=== PATIENT | female | born 1985 | race African-American/Black ===

== ENCOUNTER 2016-09-05 17:51 | Emergency (ER) | payer SELFPAY ==
[~2016-09-05] VITALS: Ht 172.7 cm; Wt 99.8 kg
[~2016-09-05 17:51] MED LIST: ACETAMINOPHEN-1 EAC1 ORAL; ALBUTEROL SULF8.5 GM INH; ALBUTEROL2.5 MG/3 M HHN; AMOXICILLIN500 MG ORAL; BENADRYL50 MG ORAL; CIPRO500 MG PO; HYDROCORTISONE28 G2 TP; IBUPROFEN600 MG ORAL; METRONIDAZOLE500 MG ORAL; NKM; NORCO 5-325 TA1 EACH ORAL; NYSTATIN15 GM TOPIC; ONDANSETRON ODT4 MG ORAL; REGLAN10 MG PO; VIBRAMYCIN100 MG ORAL; ZOFRAN ODT4 MG ORAL; no home meds
[2016-09-05] MEDS ORDERED: NKM (18:01)
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
[2016-09-05] MEDS ORDERED: Ketorolac 30mg Inj IV ONE (19:15)
[2016-09-05 19:17] LABS: BASOPHILS % (AUTO) 1.4 % (0.0-2.0); EOSINOPHILS % (AUTO) 5.7 % (0.0-3.0); LYMPHOCYTES % (AUTO) 28.5 % (20.0-45.0); MEAN CORPUSCULAR HEMOGLOBIN 30.9 PG (27.0-31.0); MEAN CORPUSCULAR HGB CONC 32.7 G/DL (32.0-36.0); MEAN CORPUSCULAR VOLUME 95 FL (80-99); MEAN PLATELET VOLUME 7.5 FL (6.5-10.1); MONOCYTES % (AUTO) 12.2 % (1.0-10.0); NEUTROPHILS % (AUTO) 52.2 % (45.0-75.0); PLATELET COUNT 249 K/UL (150-450); RED BLOOD COUNT 4.14 M/UL (4.20-5.40); RED CELL DISTRIBUTION WIDTH 13.2 % (11.6-14.8)
[2016-09-05 19:19] VITALS: BP 114/63
[2016-09-05] MEDS ORDERED: IBUPROFEN600 MG ORAL (19:26)
[2016-09-05 19:39] LABS: CALCIUM 9.3 mg/dL (8.6-10.2); CREATININE 1.3 mg/dL (0.5-0.9); GLOMERULAR FILTRATION RATE 57.2 mL/min (>60); POTASSIUM 3.9 mEQ/L (3.4-4.9)
[2016-09-05 19:42] VITALS: BP 114/63
--- NOTE | 2016-09-06 11:44 | Diagnostic Imaging Report ---
Indication: Chest pain Technique: One view of the chest Comparison: none Findings: Heart is borderline enlarged. Lungs and pleural spaces clear. The bones are unremarkable. No significant change Impression: No acute process
--- NOTE | 2016-09-07 23:13 | Cardiology Report ---
APPROVED REPORT EKG Measurement Heart [id number] VA [id number] [id number] Normal sinus rhythm Normal ECG
== END 2016-09-05 19:42 | disposition home or self-care (01) ==
LOC: EMR 18:42
DX: R07.9 Chest pain, unspecified (principal); J45.909 Unspecified asthma, uncomplicated
CPT/HCPCS: 36415; 71010; 80048; 83690; 85025; 93005; 96374; 99284; J1885

== ENCOUNTER 2017-08-03 05:21 | Emergency (ER) | payer MEDICAID ==
[~2017-08-03] VITALS: Ht 172.7 cm; Wt 97.1 kg
[2017-08-03 05:35] VITALS: BP 163/95
[2017-08-03] MEDS ORDERED: Ketorolac 30mg Inj IV ONE (06:45)
[2017-08-03] MEDS ORDERED: DiphenhydrAMINE 50mg/ml Inj IVP ONE (06:45)
--- NOTE | 2017-08-03 06:55 | Emergency Room Report ---
History of Present Illness General Chief Complaint: Headache Source: Patient Present Illness HPI Patient woke up this morning with a right-sided headache. She has these headaches approximately every year. Severe. 10/10 and pounding. It doesn't radiate. She tried taking baby Tylenol earlier. She also vomited. She denies any fevers, chills, chest pain, abdominal pain. Her periods are abnormal due to having a hormonally active IUD. She denies dysuria. No change in her bowel habits. No URI sy. No sinus problems. This is not the most severe headache in her life. She's had these headaches before and doesn't have any medication to treat herself. The patient has a history of asthma. She states that her asthma stable at this time. No rashes, joint pain and weakness. She took an Uber here. She complains of 2 months of decreased hearing in her L ear. No sinus problems or clicking. 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 Last Menstrual Period: last week Now: No : 6 Para: 4 Reviewed Nursing Documentation: PMH: Agreed, PSxH: Agreed Nursing Documentation-PMH Hx Cardiac Problems: No Hx Hypertension: No Hx Pacemaker: No Hx Asthma: Yes Hx COPD: No Hx Diabetes: No Hx Cancer: No Hx Gastrointestinal Problems: Yes Hx Dialysis: No Hx Neurological Problems: No Hx Cerebrovascular Accident: No Hx Seizures: No Review of Systems All Other Systems: negative except mentioned in HPI Physical Exam Vital Signs Date Time Temp Pulse Resp B/P (MAP) Pulse Ox O2 Delivery O2 Flow Rate FiO2 08/03/17 05:24 97.9 73 18 163/95 98 97.9 Sp02 EP Interpretation: reviewed, normal General Appearance: well appearing, no apparent distress, GCS 15 Head: normocephalic Eyes: bilateral eye normal inspection, bilateral eye PERRL, bilateral eye EOMI ENT: normal pharynx, TMs + canals normal, moist mucus membranes, other - reported decreased hearing L Neck: full range of motion, supple, no meningismus Respiratory: chest non-tender, lungs clear, normal breath sounds Cardiovascular #1: regular rate, rhythm Cardiovascular #2: 2+ radial (R) Gastrointestinal: normal inspection, normal bowel sounds, non tender, no mass, non-distended Musculoskeletal: back normal, gait/station normal, normal range of motion Neurologic: alert, oriented x3, integration software engineer III-XII nml as tested, motor strength/tone normal, DTRs symmetric, sensory intact, cerebellar normal, normal gait, speech normal Psychiatric: mood/affect normal Skin: normal inspection, warm/dry Medical Decision Making Diagnostic Impression: Primary Impression: Headache Qualified Codes: R51 - Headache Additional Impression: Decreased hearing of left ear ER Course The patient presents with a headache like she's had in the past. Severe. Right -sided and she woke up with it. Risks factors are a motor reactive a day and smoking. Differential includes migraine, tension headache, sinus headache, unspecified headache, bleed amongst others. The patient has had headaches like this in the past and this is a similar one on. She also has nausea. Evaluation will be with urinalysis and test although this is unlikely because she has an IUD. She will be treated with Compazine, Benadryl, Zofran and Toradol. Labs unremarkable. Pain gone. Patient stable for outpatient observation and treatment. Laboratory Tests Test 08/03/17 06:45 Urine Color Pale yellow Urine Appearance Clear Urine pH 8 (4.5-8.0) Urine Specific [place] 1.010 (1.005-1.035) Urine Protein Negative (NEGATIVE) Urine Glucose (UA) Negative (NEGATIVE) Urine Ketones Negative (NEGATIVE) Urine Occult Blood Negative (NEGATIVE) Urine Nitrite Negative (NEGATIVE) Urine Bilirubin Negative (NEGATIVE) Urine Urobilinogen Normal MG/DL (0.0-1.0) Urine Leukocyte Esterase Negative (NEGATIVE) Urine HCG, Qualitative Negative Last Vital Signs Date Time Temp Pulse Resp B/P (MAP) Pulse Ox O2 Delivery O2 Flow Rate FiO2 08/03/17 10:32 97.8 69 18 135/80 95 Room Air Status: improved Disposition: HOME, SELF-CARE Condition: Improved Scripts Ondansetron Odt* (ZOFRAN ODT*) 4 Mg Tab.rapdis 4 MG ORAL Q8H Y for Nausea & Vomiting, #8 TAB 0 Refills Prov: Regis Amaya M.D. 08/03/17 Ibuprofen* (MOTRIN*) 600 Mg Tablet 600 MG ORAL Q6H Y for For Pain, #20 TAB Prov: Regis Amaya M.D. 08/03/17 Referrals: NOT CHOSEN DWAIN/,REFERRING (PCP) Regis Amaya M.D. Aug 03, 2017 06:55
[2017-08-03 07:25] LABS: APPEARANCE,URINE CLEAR; BILIRUBIN, URINE NEGATIVE (NEGATIVE); COLOR,URINE PALE YELLOW; GLUCOSE, URINE (UA) NEGATIVE (NEGATIVE); KETONES,URINE NEGATIVE (NEGATIVE); LEUKOCYTE ESTERASE ,URINE NEGATIVE (NEGATIVE); NITRITE,URINE NEGATIVE (NEGATIVE); PH,URINE 8 (4.5-8.0); PROTEIN,URINE NEGATIVE (NEGATIVE); UROBILINOGEN,URINE NORMAL MG/DL (0.0-1.0)
[2017-08-03] MEDS ORDERED: IBUPROFEN600 MG ORAL (10:15)
[2017-08-03] MEDS ORDERED: ZOFRAN ODT4 MG ORAL (10:15)
[2017-08-03 10:32] VITALS: BP 135/80
== END 2017-08-03 10:34 | disposition home or self-care (01) ==
LOC: EMR 06:30
DX: R51 Headache (principal); H91.92 Unspecified hearing loss, left ear; J45.909 Unspecified asthma, uncomplicated; F17.200 Nicotine dependence, unspecified, uncomplicated; Z88.8 Allergy status to other drugs, medicaments and biological substances
CPT/HCPCS: 81003; 81025; 96361; 96374; 96375; 99284; J0780; J1200; J1885; J2405

== ENCOUNTER 2018-04-02 10:46 | Emergency (ER) | payer MEDICAID ==
[~2018-04-02] VITALS: Ht 172.7 cm; Wt 97.1 kg
[2018-04-02 11:05] VITALS: BP 118/85
--- NOTE | 2018-04-02 11:24 | Emergency Room Report ---
History of Present Illness General Chief Complaint: Nausea Source: Patient Present Illness HPI Patient presents with complaints of epigastric discomfort nausea vomiting Also diarrhea Patient reports that it might be due to her chest of drinking alcohol yesterday Denies any fevers , however has had chills feeling Denies any flank pain denies any headache denies any neck pain or photophobia Epigastric pain is 4 out of 10 turning in nature Denies any radiation Allergies: Coded Allergies: THEOPHYLLINE ANHYDROUS (Verified Allergy, Severe, 07/10/12) Patient History Past Medical History: see triage record Pertinent Family History: none Last Menstrual Period: 03/09/18 Now: No Reviewed Nursing Documentation: PMH: Agreed; PSxH: Agreed Nursing Documentation-PMH Hx Cardiac Problems: No Hx Hypertension: No Hx Pacemaker: No Hx Asthma: Yes Hx COPD: No Hx Diabetes: No Hx Cancer: No Hx Gastrointestinal Problems: Yes Hx Dialysis: No Hx Neurological Problems: No Hx Cerebrovascular Accident: No Hx Seizures: No Review of Systems All Other Systems: negative except mentioned in HPI Physical Exam Vital Signs Date Time Temp Pulse Resp B/P (MAP) Pulse Ox O2 Delivery O2 Flow Rate FiO2 04/02/18 11:04 97.9 62 20 135/84 95 Room Air Sp02 EP Interpretation: reviewed, normal General Appearance: mild distress - Appears uncomfortable Head: normocephalic, atraumatic Eyes: bilateral eye PERRL, bilateral eye EOMI ENT: hearing grossly normal, normal pharynx Neck: supple Respiratory: chest non-tender, lungs clear Cardiovascular #1: regular rate, rhythm Gastrointestinal: non tender, soft, no mass Genitourinary: no CVA tenderness Musculoskeletal: normal inspection Neurologic: alert, oriented x3, responsive Skin: normal color, no rash Lymphatic: no adenopathy Medical Decision Making Diagnostic Impression: Primary Impression: Nausea and vomiting in adult patient Additional Impression: UTI (urinary tract infection) ER Course With the patient's history and examination, multiple differentials considered, including but not limited to , ectopic , ovarian torsion, gastritis, cholecystitis, pancreatitis, appendicitis Patient's blood work is appropriate She has done significantly better throughout her stay urine sample shows some bacteria Question possible contamination however given her symptoms she will be treated symptomatically Lower abdomen remained soft on repeat examinations CT imaging has not been obtained and patient will have initial conservative outpatient trial Labs Test 04/02/18 11:30 White Blood Count 4.4 K/UL (4.8-10.8) Red Blood Count 4.58 M/UL (4.20-5.40) Hemoglobin 14.0 G/DL (12.0-16.0) Hematocrit 42.0 % (37.0-47.0) Mean Corpuscular Volume 92 FL (80-99) Mean Corpuscular Hemoglobin 30.6 PG (27.0-31.0) Mean Corpuscular Hemoglobin Concent 33.4 G/DL (32.0-36.0) Red Cell Distribution Width 12.3 % (11.6-14.8) Platelet Count 314 K/UL (150-450) Mean Platelet Volume 5.6 FL (6.5-10.1) Neutrophils (%) (Auto) 54.5 % (45.0-75.0) Lymphocytes (%) (Auto) 30.8 % (20.0-45.0) Monocytes (%) (Auto) 11.1 % (1.0-10.0) Eosinophils (%) (Auto) 1.7 % (0.0-3.0) Basophils (%) (Auto) 2.0 % (0.0-2.0) Urine Color Pale yellow Urine Appearance Clear Urine pH 7 (4.5-8.0) Urine Specific [place] 1.005 (1.005-1.035) Urine Protein Negative (NEGATIVE) Urine Glucose (UA) Negative (NEGATIVE) Urine Ketones Negative (NEGATIVE) Urine Blood 1+ (NEGATIVE) Urine Nitrite Negative (NEGATIVE) Urine Bilirubin Negative (NEGATIVE) Urine Urobilinogen Normal MG/DL (0.0-1.0) Urine Leukocyte Esterase 2+ (NEGATIVE) Urine RBC 0-2 /HPF (0 - 2) Urine WBC 2-4 /HPF (0 - 2) Urine Squamous Epithelial Cells Few /LPF (NONE/OCC) Urine Bacteria Few /HPF (NONE) Urine HCG, Qualitative Negative (NEGATIVE) Sodium Level 142 MMOL/L (136-145) Potassium Level 4.1 MMOL/L (3.5-5.1) Chloride Level 104 MMOL/L (98-107) Carbon Dioxide Level 26 MMOL/L (21-32) Anion Gap 13 mmol/L (5-15) Blood Urea Nitrogen 13 mg/dL (7-18) Creatinine 0.9 MG/DL (0.55-1.30) Estimat Glomerular Filtration Rate > 60 mL/min (>60) Glucose Level 80 MG/DL (74-106) Calcium Level 8.9 MG/DL (8.5-10.1) Total Bilirubin 0.6 MG/DL (0.2-1.0) Aspartate Amino Transf (AST/SGOT) 42 U/L (15-37) Alanine Aminotransferase (ALT/SGPT) 31 U/L (12-78) Alkaline Phosphatase 76 U/L (46-116) Total Protein 8.7 G/DL (6.4-8.2) Albumin 3.7 G/DL (3.4-5.0) Globulin 5.0 g/dL Albumin/Globulin Ratio 0.7 (1.0-2.7) Lipase 128 U/L (73-393) Last Vital Signs Date Time Temp Pulse Resp B/P (MAP) Pulse Ox O2 Delivery O2 Flow Rate FiO2 04/02/18 11:04 97.9 62 20 135/84 95 Room Air Status: improved Disposition: HOME, SELF-CARE Condition: Improved Scripts Famotidine (PEPCID AC) 20 Mg Tablet 20 MG PO DAILY, #12 TAB Prov: Bonnie Martin DO 04/02/18 Ondansetron (Zofran) 4 Mg Tablet 4 MG ORAL Q8HR PRN for Nausea & Vomiting, #10 TAB Prov: Bonnie Martin DO 04/02/18 Nitrofurantoin Monohyd/M-Cryst* (MACROBID 100 MG*) 100 Mg Capsule 100 MG ORAL EVERY 12 HOURS for 3 Days, CAP Prov: Bonnie Martin DO 04/02/18 Additional Instructions: Patient is provided with the discharge instructions notified to follow up with primary doctor in the next 2-3 days otherwise return to the er with any worsening symptoms. Please note that this report is being documented using [employer] technology. This can lead to erroneous entry secondary to incorrect interpretation by the dictating instrument. Bonnie Martin DO Apr 02, 2018 11:23
[2018-04-02] MEDS ORDERED: LORazepam Inj 2mg/ml 1ml IV ONE (11:30)
[2018-04-02] MEDS ORDERED: Morphine Sulfate 4mg/ml Inj (IV/IM USE ONLY) IVP ONE (11:30)
[2018-04-02] MEDS ORDERED: Metoclopramide 10mg/2ml Inj IVP ONE (11:30)
[2018-04-02 12:01] LABS: EOSINOPHILS % (AUTO) 1.7 % (0.0-3.0); LYMPHOCYTES % (AUTO) 30.8 % (20.0-45.0); MEAN CORPUSCULAR VOLUME 92 FL (80-99); MONOCYTES % (AUTO) 11.1 % (1.0-10.0); NEUTROPHILS % (AUTO) 54.5 % (45.0-75.0); PLATELET COUNT 314 K/UL (150-450); RED BLOOD COUNT 4.58 M/UL (4.20-5.40); RED CELL DISTRIBUTION WIDTH 12.3 % (11.6-14.8); WHITE BLOOD COUNT 4.4 K/UL (4.8-10.8)
[2018-04-02 12:04] LABS: ANION GAP 13 mmol/L (5-15); BLOOD UREA NITROGEN 13 mg/dL (7-18); CALCIUM 8.9 MG/DL (8.5-10.1); CARBON DIOXIDE 26 MMOL/L (21-32); CHLORIDE 104 MMOL/L (98-107); CREATININE 0.9 MG/DL (0.55-1.30); POTASSIUM 4.1 MMOL/L (3.5-5.1); SODIUM 142 MMOL/L (136-145)
[2018-04-02 12:08] LABS: ALANINE AMINOTRANSFERASE 31 U/L (12-78); ALBUMIN 3.7 G/DL (3.4-5.0); ALBUMIN/GLOBULIN RATIO 0.7 (1.0-2.7); ALKALINE PHOSPHATASE 76 U/L (46-116); ASPARTATE AMINO TRANSFERASE 42 U/L (15-37); BILIRUBIN,TOTAL 0.6 MG/DL (0.2-1.0)
[2018-04-02 13:03] LABS: APPEARANCE,URINE CLEAR; BILIRUBIN, URINE NEGATIVE (NEGATIVE); COLOR,URINE PALE YELLOW; GLUCOSE, URINE (UA) NEGATIVE (NEGATIVE); KETONES,URINE NEGATIVE (NEGATIVE); LEUKOCYTE ESTERASE ,URINE 2+ (NEGATIVE); NITRITE,URINE NEGATIVE (NEGATIVE); PH,URINE 7 (4.5-8.0); PROTEIN,URINE NEGATIVE (NEGATIVE); UROBILINOGEN,URINE NORMAL MG/DL (0.0-1.0)
[2018-04-02] MEDS ORDERED: NITROFURANTOIN100 M2 ORAL (14:06)
[2018-04-02] MEDS ORDERED: ZOFRAN4 M1 ORAL (14:06)
[2018-04-02] MEDS ORDERED: PEPCID AC20 M2 PO (14:06)
[2018-04-02 14:24] VITALS: BP 141/82
== END 2018-04-02 14:25 | disposition home or self-care (01) ==
LOC: EMR 11:30
DX: R11.2 Nausea with vomiting, unspecified (principal); N39.0 Urinary tract infection, site not specified; R10.13 Epigastric pain; J45.909 Unspecified asthma, uncomplicated
CPT/HCPCS: 36415; 80053; 81003; 81025; 83690; 85025; 96361; 96374; 96375; 99284; J2270; J2765

== ENCOUNTER 2018-04-13 23:51 | Emergency (ER) | payer MEDICAID ==
[~2018-04-13] VITALS: Ht 172.7 cm; Wt 95.3 kg
[~2018-04-13 23:51] MED LIST changes: +NITROFURANTOIN100 M2 ORAL; +PEPCID AC20 M2 PO; +ZOFRAN4 M1 ORAL
[2018-04-14 00:15] VITALS: BP 140/86
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
[2018-04-14 00:53] LABS: APPEARANCE,URINE SLIGHTLY CLOUDY; BILIRUBIN, URINE NEGATIVE (NEGATIVE); COLOR,URINE PALE YELLOW; GLUCOSE, URINE (UA) NEGATIVE (NEGATIVE); KETONES,URINE NEGATIVE (NEGATIVE); LEUKOCYTE ESTERASE ,URINE 3+ (NEGATIVE); NITRITE,URINE NEGATIVE (NEGATIVE); PH,URINE 5 (4.5-8.0); PROTEIN,URINE 1+ (NEGATIVE); UROBILINOGEN,URINE NORMAL MG/DL (0.0-1.0)
[2018-04-14 01:45] VITALS: BP 140/86
[2018-04-14] MEDS ORDERED: NITROFURANTOIN100 M2 ORAL (01:59)
[2018-04-14] MEDS ORDERED: IBUPROFEN600 MG ORAL (01:59)
== END 2018-04-14 01:45 | disposition home or self-care (01) ==
LOC: EMR 04-14 00:40
DX: N39.0 Urinary tract infection, site not specified (principal); R20.2 Paresthesia of skin; J45.909 Unspecified asthma, uncomplicated
CPT/HCPCS: 81003; 81025; 87086; 99283

== ENCOUNTER 2018-12-31 10:51 | Emergency (ER) | payer MEDICAID ==
[~2018-12-31] VITALS: Ht 172.7 cm; Wt 85.7 kg
[2018-12-31 11:29] VITALS: BP 147/82
--- NOTE | 2018-12-31 11:30 | NUR ---
ED Nurse Note: pt walked in c/o yellow discharge on her vagina x 2 days, denies taking medication, denies itchiness and pain. pt able to give urine sample. will continue to monitor.
--- NOTE | 2018-12-31 12:14 | NUR ---
ED Nurse Note: pt medicated as ordered, pt able to tolerate po meds. will continue to monitor.
[2018-12-31] MEDS ORDERED: Fluconazole 100mg tab ORAL ONE (12:15)
[2018-12-31 12:23] LABS: APPEARANCE,URINE SLIGHTLY CLOUDY; BILIRUBIN, URINE NEGATIVE (NEGATIVE); COLOR,URINE PALE YELLOW; GLUCOSE, URINE (UA) NEGATIVE (NEGATIVE); KETONES,URINE 2+ (NEGATIVE); LEUKOCYTE ESTERASE ,URINE NEGATIVE (NEGATIVE); NITRITE,URINE NEGATIVE (NEGATIVE); PH,URINE 5 (4.5-8.0); PROTEIN,URINE NEGATIVE (NEGATIVE); UROBILINOGEN,URINE NORMAL MG/DL (0.0-1.0)
[2018-12-31] MEDS ORDERED: AZITHROMYCIN500 MG ORAL (12:53)
[2018-12-31 13:03] VITALS: BP 147/82
--- NOTE | 2018-12-31 13:05 | NUR ---
discharged home with instruction and rx follow up with pmd
--- NOTE | 2019-01-01 22:10 | Emergency Room Report ---
History of Present Illness General Chief Complaint: Vaginal Source: Medical Record Present Illness Allergies: Coded Allergies: THEOPHYLLINE ANHYDROUS (Verified Allergy, Severe, 07/10/12) Patient History Last Menstrual Period: 12/23/18 Nursing Documentation-[facility] Past Medical History: No History, Except For Hx Cardiac Problems: No Hx Hypertension: No Hx Pacemaker: No Hx Asthma: Yes Hx COPD: No Hx Diabetes: No Hx Cancer: No Hx Gastrointestinal Problems: Yes Hx Dialysis: No Hx Neurological Problems: No Hx Cerebrovascular Accident: No Hx Seizures: No Physical Exam Vital Signs Date Time Temp Pulse Resp B/P (MAP) Pulse Ox O2 Delivery O2 Flow Rate FiO2 12/31/18 10:59 98.2 77 18 147/82 (103) 96 Room Air Medical Decision Making Diagnostic Impression: Primary Impression: Vaginal discharge Labs Test 12/31/18 11:02 Urine Color Pale yellow Urine Appearance Slightly cloudy Urine pH 5 (4.5-8.0) Urine Specific [place] 1.020 (1.005-1.035) Urine Protein Negative (NEGATIVE) Urine Glucose (UA) Negative (NEGATIVE) Urine Ketones 2+ (NEGATIVE) Urine Blood 2+ (NEGATIVE) Urine Nitrite Negative (NEGATIVE) Urine Bilirubin Negative (NEGATIVE) Urine Urobilinogen Normal MG/DL (0.0-1.0) Urine Leukocyte Esterase Negative (NEGATIVE) Urine RBC 2-4 /HPF (0 - 2) Urine WBC 0-2 /HPF (0 - 2) Urine Squamous Epithelial Cells Many /LPF (NONE/OCC) Urine Bacteria Few /HPF (NONE) Urine HCG, Qualitative Negative (NEGATIVE) Last Vital Signs Date Time Temp Pulse Resp B/P (MAP) Pulse Ox O2 Delivery O2 Flow Rate FiO2 12/31/18 13:03 98.2 67 18 147/82 96 Room Air Disposition: HOME, SELF-CARE Condition: Stable Scripts Azithromycin (AZITHROMYCIN) 500 Mg Tablet 1000 MG ORAL DAILY, #2 TAB Prov: Braxton Kunz MD 12/31/18 Patient Instructions: Vaginitis rBaxton Kunz MD Jan 01, 2019 22:10
== END 2018-12-31 13:05 | disposition home or self-care (01) ==
LOC: EMR 12:18
DX: N89.8 Other specified noninflammatory disorders of vagina (principal); J45.909 Unspecified asthma, uncomplicated; Z88.8 Allergy status to other drugs, medicaments and biological substances
CPT/HCPCS: 81003; 81025; 99283

== ENCOUNTER 2019-07-21 16:41 | Emergency (ER) | payer MEDICAID ==
[~2019-07-21] VITALS: Ht 172.7 cm; Wt 84.8 kg
[~2019-07-21 16:41] MED LIST changes: +AZITHROMYCIN500 MG ORAL
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
[2019-07-21 17:15] VITALS: BP 124/80
--- NOTE | 2019-07-21 19:05 | NUR ---
ED Nurse Note: Received report from Panda PAULINO. Pt alert and oriented. Not in any ditress. Will cont to monitor.
--- NOTE | 2019-07-21 19:19 | Diagnostic Imaging Report ---
Indications: Pain, status post trauma Technique: Spiral images obtained through the facial bones. No IV contrast utilized. Multiplanar reconstructions were generated.Total dose length product 402 mGycm. CTDIvol(s) 15 mGy. Dose reduction achieved using automated exposure control Comparison: none Findings: There is some image degradation due to motion artifact. No definite acute fractures. No worrisome sinus opacification. Visualized orbits are unremarkable. The mastoids are clear. The visualized intracranial structures are unremarkable. The dentition is grossly intact. Impression: Limited exam, due to motion artifact. No definite acute bony trauma The CT scanner at [facility] is accredited by the [employer] and the scans are performed using protocols designed to limit radiation exposure to as low as reasonably achievable to attain images of sufficient resolution adequate for diagnostic evaluation.
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
--- NOTE | 2019-07-21 19:25 | NUR ---
ED Nurse Note: Urine specimen collected and sent to lab
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
[2019-07-21] MEDS ORDERED: TYLENOL EXTRA500 MG ORAL (20:26)
[2019-07-21] MEDS ORDERED: CYCLOBENZAPRINE10 MG ORAL (20:26)
[2019-07-21 20:38] VITALS: BP 124/80
--- NOTE | 2019-07-21 20:38 | NUR ---
ED Nurse Note: Pt cleared by ERMD for discharge. DC instructions/prescription was given and explained to pt and verbalized understanding of teachings. All medical deviecs such as ID band removed. Pt is AAO x4, ambulatory and left with all personal belongings.
== END 2019-07-21 20:38 | disposition home or self-care (01) ==
LOC: EMR 18:05
DX: M54.2 Cervicalgia (principal); S00.83XA Contusion of other part of head, initial encounter; S60.212A Contusion of left wrist, initial encounter; S60.812A Abrasion of left wrist, initial encounter; S60.811A Abrasion of right wrist, initial encounter; Y04.8XXA Assault by other bodily force, initial encounter; Y92.9 Unspecified place or not applicable; Z88.8 Allergy status to other drugs, medicaments and biological substances
CPT/HCPCS: 70486; 72125; 81025; Z7502; 99284

== ENCOUNTER 2019-07-26 22:55 | Emergency (ER) | payer MEDICAID ==
[~2019-07-26] VITALS: Ht 172.7 cm; Wt 86.2 kg
[~2019-07-26 22:55] MED LIST changes: +CYCLOBENZAPRINE10 MG ORAL; +TYLENOL EXTRA500 MG ORAL
[2019-07-26 23:00] VITALS: BP 146/72
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
[2019-07-27] MEDS ORDERED: ROBAXIN-750750 MG PO (01:54)
[2019-07-27] MEDS ORDERED: LIDODERM700 M1 TOPIC (01:54)
--- NOTE | 2019-07-27 01:56 | Diagnostic Imaging Report ---
EXAM: CT Cervical Spine Without Intravenous Contrast CLINICAL HISTORY: INJ TECHNIQUE: Axial computed tomography images of the cervical spine without intravenous contrast. CTDI is 5.7 mGy and DLP is 131.1 mGy-cm. One or more of the following dose reduction techniques were used: automated exposure control, adjustment of the mA and/or kV according to patient size, use of iterative reconstruction technique. COMPARISON: CT cervical spine 07/21/2019 FINDINGS: Vertebrae: No fracture or malalignment. Anterior osteophyte at C5-6. Soft tissues: Unremarkable. IMPRESSION: No fracture or malalignment.
[2019-07-27 02:00] VITALS: BP 135/80
--- NOTE | 2019-07-27 02:00 | NUR ---
ER DISCHARGE NOTE: Patient is cleared to be discharged per ERMD, pt is aox4, on room air, with stable vital signs. pt was given dc and prescription instructions, pt was able to verbalize understanding, pt id band removed. pt is able to ambulate with steady gait. pt took all belongings.
== END 2019-07-27 02:00 | disposition home or self-care (01) ==
LOC: EMR 23:55
DX: M62.838 Other muscle spasm (principal)
CPT/HCPCS: 72125; Z7502; 99284

== ENCOUNTER 2020-03-22 04:57 | Emergency (ER) | payer MEDICAID ==
[~2020-03-22] VITALS: Ht 172.7 cm; Wt 68.0 kg
[~2020-03-22 04:57] MED LIST changes: +LIDODERM700 M1 TOPIC; +ROBAXIN-750750 MG PO
[2020-03-22 05:00] VITALS: BP 152/98
--- NOTE | 2020-03-22 05:00 | NUR ---
ED Nurse Note: Pt ambulated to ED from home c/o nausea for several days, worsening tonight, waking her out of her sleep. Pt denies vomiting. Pt is A&Ox4, VSS. pt denies constipation or diarrhea, ERMD at bedside
[2020-03-22 05:47] LABS: APPEARANCE,URINE CLEAR; BILIRUBIN, URINE NEGATIVE (NEGATIVE); GLUCOSE, URINE (UA) NEGATIVE (NEGATIVE); KETONES,URINE NEGATIVE (NEGATIVE); LEUKOCYTE ESTERASE ,URINE 1+ (NEGATIVE); NITRITE,URINE POSITIVE (NEGATIVE); PH,URINE 7 (4.5-8.0); PROTEIN,URINE 2+ (NEGATIVE); UROBILINOGEN,URINE 1 MG/DL (0.0-1.0)
[2020-03-22 05:54] LABS: COLOR,URINE YELLOW
[2020-03-22] MEDS ORDERED: Metoclopramide 10mg/2ml Inj IVP ONE (06:00)
[2020-03-22] MEDS ORDERED: Cephalexin 500mg cap ORAL ONE (06:00)
--- NOTE | 2020-03-22 06:13 | Emergency Room Report ---
History of Present Illness General Chief Complaint: Nausea Source: Patient (Braxton Kunz MD) Present Illness HPI Patient is a 34-year-old female presents for increased nausea for the past 3 days. Reports having decreased oral intake. States that she had not been vomiting or having any diarrhea. Denies any headache. Had not been having any fever. Reported having nausea that woke her up from sleep. Denies any vertigo sensation. Had not been having a cough or fever. Denies any abdominal pain. She is unsure if she is . Reports having last menses approximate 1 month ago. Denies any localized abdominal pain. Denies any difficulty with urination. She states she smokes marijuana but very rarely (Braxton Kunz MD) Allergies: Coded Allergies: THEOPHYLLINE ANHYDROUS (Verified Allergy, Severe, 07/10/12) COVID-19 Screening Contact w/high risk pt: No Experienced COVID-19 symptoms?: No COVID-19 Testing performed CONCRETE BLOCK LAYER: No (Braxton Kunz MD) Patient History Past Medical History: see triage record Last Menstrual Period: 02/21/2020 Now: No : 8 Para: 2 Reviewed Nursing Documentation: PMH: Agreed; PSxH: Agreed (Braxton Kunz MD) Nursing Documentation-PMH Past Medical History: No History, Except For Hx Cardiac Problems: No Hx Hypertension: No Hx Pacemaker: No Hx Asthma: Yes Hx COPD: No Hx Diabetes: No Hx Cancer: No Hx Gastrointestinal Problems: No Hx Dialysis: No Hx Neurological Problems: No Hx Cerebrovascular Accident: No Hx Seizures: No (Braxton Kunz MD) Review of Systems All Other Systems: negative except mentioned in HPI (Braxton Kunz MD) Physical Exam Vital Signs Date Time Temp Pulse Resp B/P (MAP) Pulse Ox O2 Delivery O2 Flow Rate FiO2 03/22/20 04:58 98.1 56 21 152/98 (116) 97 Room Air Sp02 EP Interpretation: reviewed, normal General Appearance: normal inspection, well appearing, no apparent distress, alert, GCS 15 Head: atraumatic ENT: normal ENT inspection, hearing grossly normal, normal voice Neck: normal inspection, full range of motion, supple, no bony tend Respiratory: normal inspection, lungs clear, normal breath sounds, no respiratory distress, no retraction, no wheezing Cardiovascular #1: regular rate, rhythm, no edema Gastrointestinal: normal inspection, normal bowel sounds, non tender, soft, no guarding, no hernia Genitourinary: no CVA tenderness Musculoskeletal: normal inspection, back normal, normal range of motion Neurologic: alert, motor strength/tone normal, bingo worker III-XII nml as tested, oriented x3, responsive, speech normal, normal inspection Psychiatric: normal inspection, judgement/insight normal, mood/affect normal (Braxton Kunz MD) Medical Decision Making Diagnostic Impression: Primary Impression: Nausea in adult patient Additional Impression: Alcohol intoxication Qualified Codes: F10.929 - Alcohol use, unspecified with intoxication, unspecified ER Course Patient presented for nausea. Differential diagnosis include was not limited to urinary tract infection, gastroenteritis, marijuana induced nausea, among others. Because of complexity of patient's case laboratory tests and imaging studies were ordered. Patient was noted to have nausea without any evidence of abdominal pain or headache. She was given Zofran without any improvement nausea. Laboratory testing was ordered. Patient was endorsed to Dr. Garcia pending laboratory testing. She does appear to have some urinary tract infection. Was given Keflex. Labs Test 03/22/20 03:40 Urine Color Yellow Urine Appearance Clear Urine pH 7 (4.5-8.0) Urine Specific [place] 1.010 (1.005-1.035) Urine Protein 2+ (NEGATIVE) Urine Glucose (UA) Negative (NEGATIVE) Urine Ketones Negative (NEGATIVE) Urine Blood 2+ (NEGATIVE) Urine Nitrite Positive (NEGATIVE) Urine Bilirubin Negative (NEGATIVE) Urine Urobilinogen 1 MG/DL (0.0-1.0) Urine Leukocyte Esterase 1+ (NEGATIVE) Urine HCG, Qualitative Negative (NEGATIVE) (Braxton Kunz MD) ER Course Hospital Course 34-year-old female presents with nausea Patient initially seen and evaluated by Dr. Kunz. Please see his note for full history and physical Clinical course Labs - no leukocytosis, no electrolyte abnormalities, LFTs normal, ETOH > 100. UA + bacteria Given antibiotics in ED. Discussed findings with patient. On reassessment states she feels better. Safe for discharge with close outpatient follow-up. States she has a PMD I feel this is a highly complex case requiring extensive working including EKG/Rhythm strip, Xray/CT/US, Blood/urine lab work, repeat exams while in ED, and administration of strong opiates/narcotics for pain control, admission to hospital or close patient follow up. Diagnosis -nausea in adult patient, alcohol intoxication Stable and discharged to home with prescriptions for Pepcid, Zofran, Keflex. Followup with PMD. Return to ED if symptoms recur or worsen Laboratory Tests Test 03/22/20 03:40 03/22/20 06:15 Urine Color Yellow Urine Appearance Clear Urine pH 7 (4.5-8.0) Urine Specific [place] 1.010 (1.005-1.035) Urine Protein 2+ (NEGATIVE) H Urine Glucose (UA) Negative (NEGATIVE) Urine Ketones Negative (NEGATIVE) Urine Blood 2+ (NEGATIVE) H Urine Nitrite Positive (NEGATIVE) H Urine Bilirubin Negative (NEGATIVE) Urine Urobilinogen 1 MG/DL (0.0-1.0) H Urine Leukocyte Esterase 1+ (NEGATIVE) H Urine RBC 0-2 /HPF (0 - 2) Urine WBC 5-10 /HPF (0 - 2) H Urine Squamous Epithelial Cells Moderate /LPF (NONE/OCC) H Urine Bacteria Moderate /HPF (NONE) H Urine HCG, Qualitative Negative (NEGATIVE) White Blood Count 4.0 K/UL (4.8-10.8) L Red Blood Count 3.83 M/UL (4.20-5.40) L Hemoglobin 13.3 G/DL (12.0-16.0) Hematocrit 36.4 % (37.0-47.0) L Mean Corpuscular Volume 95 FL (80-99) Mean Corpuscular Hemoglobin 34.6 PG (27.0-31.0) H Mean Corpuscular Hemoglobin Concent 36.5 G/DL (32.0-36.0) H Red Cell Distribution Width 13.6 % (11.6-14.8) Platelet Count 220 K/UL (150-450) Mean Platelet Volume 5.4 FL (6.5-10.1) L Neutrophils (%) (Auto) 40.9 % (45.0-75.0) L Lymphocytes (%) (Auto) 34.5 % (20.0-45.0) Monocytes (%) (Auto) 17.1 % (1.0-10.0) H Eosinophils (%) (Auto) 4.6 % (0.0-3.0) H Basophils (%) (Auto) 3.0 % (0.0-2.0) H Sodium Level 142 MMOL/L (136-145) Potassium Level 3.3 MMOL/L (3.5-5.1) L Chloride Level 105 MMOL/L (98-107) Carbon Dioxide Level 26 MMOL/L (21-32) Anion Gap 11 mmol/L (5-15) Blood Urea Nitrogen 9 mg/dL (7-18) Creatinine 0.9 MG/DL (0.55-1.30) Estimat Glomerular Filtration Rate > 60 mL/min (>60) Glucose Level 71 MG/DL (74-106) L Calcium Level 8.0 MG/DL (8.5-10.1) L Total Bilirubin 0.5 MG/DL (0.2-1.0) Aspartate Amino Transf (AST/SGOT) 165 U/L (15-37) H Alanine Aminotransferase (ALT/SGPT) 112 U/L (12-78) H Alkaline Phosphatase 66 U/L (46-116) Total Protein 7.7 G/DL (6.4-8.2) Albumin 3.2 G/DL (3.4-5.0) L Globulin 4.5 g/dL Albumin/Globulin Ratio 0.7 (1.0-2.7) L Lipase 130 U/L (73-393) Serum Alcohol 165 mg/dL (Gabriel Broussard MD) Last Vital Signs Date Time Temp Pulse Resp B/P (MAP) Pulse Ox O2 Delivery O2 Flow Rate FiO2 03/22/20 05:00 98.1 70 21 152/98 97 Room Air (Braxton Kunz MD) Status: improved (Gabriel Broussard MD) Disposition: HOME, SELF-CARE Condition: Stable Scripts Cephalexin* (KEFLEX*) 500 Mg Capsule 500 MG ORAL EVERY 6 HOURS for 7 Days, #28 CAP Prov: Gabriel Broussard MD 03/22/20 Famotidine* (Pepcid 20mg tablet*) 20 Mg Tablet 20 MG ORAL DAILY for Gerd, #30 TAB 0 Refills Prov: Gabriel Broussard MD 03/22/20 Ondansetron Odt* (ZOFRAN ODT*) 4 Mg Tab.rapdis 4 MG BC EVERY 6 HOURS PRN for Nausea & Vomiting, #10 TAB 0 Refills Prov: Gabriel Broussard MD 03/22/20 Referrals: [facility],REFERRING (PCP) Patient Instructions: Nausea, Adult Additional Instructions: Follow up with your doctor for recheck. Return if worse. Braxton Kunz MD Mar 22, 2020 06:13 Gabriel Broussard MD Mar 22, 2020 09:09
[2020-03-22 07:14] LABS: EOSINOPHILS % (AUTO) 4.6 % (0.0-3.0); HEMATOCRIT 36.4 % (37.0-47.0); HEMOGLOBIN 13.3 G/DL (12.0-16.0); LYMPHOCYTES % (AUTO) 34.5 % (20.0-45.0); MEAN CORPUSCULAR VOLUME 95 FL (80-99); MONOCYTES % (AUTO) 17.1 % (1.0-10.0); NEUTROPHILS % (AUTO) 40.9 % (45.0-75.0); PLATELET COUNT 220 K/UL (150-450); RED BLOOD COUNT 3.83 M/UL (4.20-5.40); RED CELL DISTRIBUTION WIDTH 13.6 % (11.6-14.8)
[2020-03-22 07:15] LABS: ANION GAP 11 mmol/L (5-15); BLOOD UREA NITROGEN 9 mg/dL (7-18); CARBON DIOXIDE 26 MMOL/L (21-32); CHLORIDE 105 MMOL/L (98-107); CREATININE 0.9 MG/DL (0.55-1.30); POTASSIUM 3.3 MMOL/L (3.5-5.1); SODIUM 142 MMOL/L (136-145)
--- NOTE | 2020-03-22 07:15 | NUR ---
HAND-OFF: Report given to JEFFERSON Stacy.
[2020-03-22 07:20] LABS: ALANINE AMINOTRANSFERASE 112 U/L (12-78); ALBUMIN 3.2 G/DL (3.4-5.0); ALBUMIN/GLOBULIN RATIO 0.7 (1.0-2.7); ALKALINE PHOSPHATASE 66 U/L (46-116); ASPARTATE AMINO TRANSFERASE 165 U/L (15-37); BILIRUBIN,TOTAL 0.5 MG/DL (0.2-1.0)
--- NOTE | 2020-03-22 07:30 | NUR ---
Nurse Note: report recieved from JEFFERSON heredia. patient is noted to be sleeping but awakes when name is called, she denies any pain or discomfort verbilized at this time. no symptoms of nausea noted at this time. IV remains intact and patent. will continue to monitor.
[2020-03-22] MEDS ORDERED: ONDANSETRON ODT4 MG BC (08:25)
[2020-03-22] MEDS ORDERED: FAMOTIDINE20 MG ORAL (08:25)
[2020-03-22 08:43] VITALS: BP 127/87
[2020-03-22 08:44] VITALS: BP 127/87
[2020-03-22] MEDS ORDERED: CEPHALEXIN500 MG ORAL (09:09)
== END 2020-03-22 08:35 | disposition home or self-care (01) ==
LOC: EMR 05:15
DX: F10.129 Alcohol abuse with intoxication, unspecified (principal); R11.0 Nausea; Z88.8 Allergy status to other drugs, medicaments and biological substances; Y90.6 Blood alcohol level of 120-199 mg/100 ml
CPT/HCPCS: 36415; 80053; 81003; 81025; 83690; 85025; 87086; 87181; 96374; 96375; G0480; J2765; J7040; S0028; Z7502; 99284